=== PATIENT | male | born 1990 | race Caucasian/White ===

== ENCOUNTER 2017-11-07 16:32 | Emergency (ER) | payer SELFPAY ==
[~2017-11-07] VITALS: Ht 185.4 cm; Wt 97.5 kg
[~2017-11-07 16:32] MED LIST: AMOCLA875 PO; AMOX500 PO; CYCL10 PO; IBUP800 PO; METPRE4DP PO; PHENA200 PO; RXPHEN200 PO; RXTRAM50 PO; TRAM50 PO; Ultram50 MG PO
[2017-11-07] MEDS ORDERED: ERYT1OIN RIGHTEYE (16:50)
[2017-11-07] MEDS ORDERED: Pepcid40 MG PO (16:50)
[2017-11-07] MEDS ORDERED: BENADRYL25 MG PO (16:50)
[2017-11-07] MEDS ORDERED: Prednisone20 MG PO (16:50)
== END 2017-11-07 17:00 | disposition home or self-care (01) ==
LOC: ER 16:32
DX: L23.7 Allergic contact dermatitis due to plants, except food (principal); H00.021 Hordeolum internum right upper eyelid; Z79.899 Other long term (current) drug therapy; Z79.52 Long term (current) use of systemic steroids
CPT/HCPCS: 96372; 99283; J3301